=== PATIENT | female | born 1980 | race Two or more races ===

== ENCOUNTER 2017-03-18 01:11 | Observation (INO) | payer SELFPAY ==
[2017-03-18] MEDS ORDERED: IV RINGERS,LACTATED 1000ML 1,000 ML IV SCH (02:00)
[2017-03-21] MEDS ORDERED: NAPR-683 PO (15:02)
[2017-03-21] MEDS ORDERED: OXYC-323 PO (15:02)
== END 2017-03-18 02:45 | disposition home or self-care (01) ==
LOC: 3 SO LND 01:11
PROVIDERS: ADMIT Family Medicine; ATTEND Family Medicine
DX: O62.9 Abnormality of forces of labor, unspecified (principal); Z3A.39 39 weeks gestation of pregnancy
CPT/HCPCS: G0378; G0379